=== PATIENT | female | born 1950 | race Caucasian/White ===

== ENCOUNTER → 2020-11-22 | Outpatient (CLI) | payer MEDICARE, MEDICAID ==
[2011-09-05 19:17] VITALS: BP 136/85
[~2020-11-22] MED LIST: ACIPHEX20 MG PO; LISINOPRIL10 MG PO; MOTRIN 200200 MG/TAB PO; TYLENOL EXTRA500 M1 PO
[2020-11-22 10:23] LABS: EOS # 0.2 (0.04-0.40); EOS % 3.8 % (1.0-5.0); HEMATOCRIT 38.4 % (37.0-47.0); HEMOGLOBIN 11.9 g/dL (12.5-16.0); MEAN CELL VOLUME 90 fl (78-100); MEAN CORPUSCULAR HEMOGLOBIN 28 pg (27-31); MEAN CORPUSCULAR HGB CONC 31 g/dL (33-37); MEAN PLATELET VOLUME 9.3 fl (7.4-10.4); MONO # 0.5 (0.20-0.80); PLATELET COUNT 296 K/mm3 (130-400); RED BLOOD COUNT 4.29 M/mm3 (4.10-5.30); RED CELL DISTRIBUTION WIDTH 14.2 % (11.5-14.5); WHITE BLOOD COUNT 5.7 K/mm3 (4.8-10.8)
[2020-11-22 10:29] LABS: ALBUMIN 4.2 g/dL (3.4-4.8)
[2020-11-22 10:31] LABS: CALCIUM 9.3 mg/dL (8.3-10.5)
[2020-11-22 10:32] LABS: TOTAL PROTEIN 7.2 g/dL (6.2-8.1)
[2020-11-22 10:34] LABS: TOTAL BILIRUBIN 0.8 mg/dL (0.2-1.2)
== END ==
LOC: LAB 09:51
PROVIDERS: Physician Assistant
DX: I10 Essential (primary) hypertension (principal); L65.9 Nonscarring hair loss, unspecified; E78.5 Hyperlipidemia, unspecified

== ENCOUNTER → 2020-12-01 | Outpatient (CLI) | payer MEDICARE, MEDICAID ==
[2011-09-05 19:17] VITALS: BP 136/85
== END ==
LOC: RAD 11:50
DX: R39.14 Feeling of incomplete bladder emptying (principal)

== ENCOUNTER → 2021-04-10 | Outpatient (CLI) | payer MEDICARE, MEDICAID ==
[2021-04-10 08:22] LABS: BASO # 0.04 (0.02-0.10); EOS # 0.28 (0.04-0.40); EOS % 4.2 % (1.0-5.0); HEMATOCRIT 40.6 % (37.0-47.0); HEMOGLOBIN 12.9 g/dL (12.5-16.0); LYMPH# 2.24 (1.50-4.00); MEAN CELL VOLUME 89 fl (78-100); MEAN CORPUSCULAR HEMOGLOBIN 28 pg (27-31); MEAN CORPUSCULAR HGB CONC 32 g/dL (33-37); MEAN PLATELET VOLUME 9.5 fl (7.4-10.4); MONO # 0.38 (0.20-0.80); NEU # 3.65 (1.40-6.50); PLATELET COUNT 269 K/mm3 (130-400); RED BLOOD COUNT 4.54 M/mm3 (4.10-5.30); RED CELL DISTRIBUTION WIDTH 13.4 % (11.5-14.5); WHITE BLOOD COUNT 6.6 K/mm3 (4.8-10.8)
[2021-04-10 08:34] LABS: POTASSIUM 4.2 mmol/L (3.5-5.1)
[2021-04-10 08:36] LABS: CALCIUM 9.9 mg/dL (8.3-10.5)
[2021-04-10 08:37] LABS: TOTAL PROTEIN 7.2 g/dL (6.2-8.1)
[2021-04-10 08:39] LABS: TOTAL BILIRUBIN 0.6 mg/dL (0.2-1.2)
== END ==
LOC: LAB 07:58
PROVIDERS: Physician Assistant
DX: Z13.29 Encounter for screening for other suspected endocrine disorder (principal); D64.9 Anemia, unspecified; E78.5 Hyperlipidemia, unspecified; R73.9 Hyperglycemia, unspecified; I10 Essential (primary) hypertension

== ENCOUNTER → 2021-06-15 | Outpatient (CLI) | payer MEDICARE, MEDICAID | LOC: LAB 18:50 | DX: N39.0 Urinary tract infection, site not specified (principal) ==

== ENCOUNTER → 2021-11-16 | Outpatient (CLI) | payer MEDICARE, MEDICAID ==
[2021-11-16 15:47] LABS: BASO # 0.04 K/mm3 (0.02-0.10); EOS # 0.29 K/mm3 (0.04-0.40); EOS % 3.8 % (1.0-5.0); HEMATOCRIT 37.1 % (37.0-47.0); HEMOGLOBIN 11.9 g/dL (12.5-16.0); LYMPH# 2.79 K/mm3 (1.50-4.00); MEAN CELL VOLUME 91 fl (78-100); MEAN CORPUSCULAR HEMOGLOBIN 29 pg (27-31); MEAN CORPUSCULAR HGB CONC 32 g/dL (33-37); MEAN PLATELET VOLUME 8.7 fl (7.4-10.4); MONO # 0.46 K/mm3 (0.20-0.80); NEU # 4.11 K/mm3 (1.40-6.50); PLATELET COUNT 332 K/mm3 (130-400); RED BLOOD COUNT 4.06 M/mm3 (4.10-5.30); RED CELL DISTRIBUTION WIDTH 13.7 % (11.5-14.5); WHITE BLOOD COUNT 7.7 K/mm3 (4.8-10.8)
[2021-11-16 15:56] LABS: ALBUMIN 4.6 g/dL (3.4-4.8); POTASSIUM 4.9 mmol/L (3.5-5.1)
[2021-11-16 15:58] LABS: CALCIUM 10.2 mg/dL (8.3-10.5)
[2021-11-16 15:59] LABS: TOTAL PROTEIN 7.8 g/dL (6.2-8.1)
[2021-11-16 16:01] LABS: TOTAL BILIRUBIN 0.7 mg/dL (0.2-1.2)
[2021-11-16 16:37] LABS: URINE APPEARANCE HAZY; URINE COLOR ORANGE; URINE PROTEIN(semi-quant) TRACE (NEGATIVE)
[2021-11-16 16:38] LABS: URINE BILIRUBIN 2+ (NEGATIVE); URINE BLOOD TRACE (NEGATIVE); URINE GLUCOSE NEGATIVE (NEGATIVE); URINE KETONE NEGATIVE (NEGATIVE); URINE LEUKOCYTE ESTERASE 1+ (NEGATIVE); URINE NITRATE POSITIVE (NEGATIVE); URINE UROBILINOGEN 1 mg/dL (NORMAL)
[2021-11-16 16:39] LABS: URINE MUCUS PRESENT (NOT PRESENT)
== END ==
LOC: LAB 15:22
PROVIDERS: Physician Assistant
DX: D64.9 Anemia, unspecified (principal); L65.9 Nonscarring hair loss, unspecified; L60.8 Other nail disorders; K90.9 Intestinal malabsorption, unspecified; R39.89 Other symptoms and signs involving the genitourinary system; R10.9 Unspecified abdominal pain; R60.0 Localized edema

== ENCOUNTER → 2022-04-12 | Outpatient (CLI) | payer MEDICARE, MEDICAID ==
[2022-04-12 10:36] LABS: BASO # 0.04 K/mm3 (0.02-0.10); EOS # 0.39 K/mm3 (0.04-0.40); EOS % 4.7 % (1.0-5.0); HEMOGLOBIN 11.8 g/dL (12.5-16.0); LYMPH# 2.53 K/mm3 (1.50-4.00); MEAN CELL VOLUME 89 fl (78-100); MEAN CORPUSCULAR HEMOGLOBIN 29 pg (27-31); MEAN CORPUSCULAR HGB CONC 32 g/dL (33-37); MEAN PLATELET VOLUME 9.3 fl (7.4-10.4); MONO # 0.53 K/mm3 (0.20-0.80); NEU # 4.76 K/mm3 (1.40-6.50); PLATELET COUNT 344 K/mm3 (130-400); RED BLOOD COUNT 4.14 M/mm3 (4.10-5.30); RED CELL DISTRIBUTION WIDTH 13.1 % (11.5-14.5); WHITE BLOOD COUNT 8.3 K/mm3 (4.8-10.8)
[2022-04-12 10:46] LABS: POTASSIUM 5.2 mmol/L (3.5-5.1)
[2022-04-12 10:47] LABS: ALBUMIN 4.4 g/dL (3.4-4.8)
[2022-04-12 10:48] LABS: CALCIUM 10.1 mg/dL (8.3-10.5)
[2022-04-12 10:49] LABS: TOTAL PROTEIN 7.7 g/dL (6.2-8.1)
[2022-04-12 10:51] LABS: TOTAL BILIRUBIN 0.7 mg/dL (0.2-1.2)
== END ==
LOC: LAB 10:09
PROVIDERS: Physician Assistant
DX: Z13.29 Encounter for screening for other suspected endocrine disorder (principal); Z13.1 Encounter for screening for diabetes mellitus; Z00.00 Encounter for general adult medical examination without abnormal findings; E78.5 Hyperlipidemia, unspecified; K90.9 Intestinal malabsorption, unspecified; I10 Essential (primary) hypertension

== ENCOUNTER → 2022-04-25 | Outpatient (CLI) | payer MEDICARE, MEDICAID | LOC: LAB 11:47 | DX: R39.9 Unspecified symptoms and signs involving the genitourinary system (principal) ==

== ENCOUNTER → 2023-04-16 | Outpatient (CLI) | payer MEDICARE, MEDICAID ==
[2023-04-16 16:44] LABS: BASO # 0.02 K/mm3 (0.02-0.10); EOS # 0.22 K/mm3 (0.04-0.40); EOS % 2.7 % (1.0-5.0); HEMATOCRIT 42.3 % (37.0-47.0); HEMOGLOBIN 13.5 g/dL (12.5-16.0); LYMPH# 2.35 K/mm3 (1.50-4.00); MEAN CELL VOLUME 92 fl (78-100); MEAN CORPUSCULAR HEMOGLOBIN 29 pg (27-31); MEAN CORPUSCULAR HGB CONC 32 g/dL (33-37); MONO # 0.47 K/mm3 (0.20-0.80); NEU # 5.07 K/mm3 (1.40-6.50); PLATELET COUNT 217 K/mm3 (130-400); RED BLOOD COUNT 4.59 M/mm3 (4.10-5.30); RED CELL DISTRIBUTION WIDTH 12.8 % (11.5-14.5); WHITE BLOOD COUNT 8.1 K/mm3 (4.8-10.8)
[2023-04-16 16:58] LABS: ALBUMIN 4.5 g/dL (3.4-4.8); POTASSIUM 4.8 mmol/L (3.5-5.1)
[2023-04-16 16:59] LABS: CALCIUM 10.6 mg/dL (8.3-10.5)
[2023-04-16 17:02] LABS: TOTAL BILIRUBIN 0.6 mg/dL (0.2-1.2)
== END ==
LOC: LAB 16:08
PROVIDERS: Physician Assistant
DX: Z00.00 Encounter for general adult medical examination without abnormal findings (principal); Z12.39 Encounter for other screening for malignant neoplasm of breast; Z13.1 Encounter for screening for diabetes mellitus; Z13.29 Encounter for screening for other suspected endocrine disorder; F41.9 Anxiety disorder, unspecified; R60.0 Localized edema; E78.5 Hyperlipidemia, unspecified; K90.9 Intestinal malabsorption, unspecified; K21.9 Gastro-esophageal reflux disease without esophagitis; I10 Essential (primary) hypertension; R10.9 Unspecified abdominal pain; Z96.0 Presence of urogenital implants